=== PATIENT | male | born 1945 | race American Indian/Alaskan Native ===

== ENCOUNTER 2016-11-06 15:33 | Emergency (ER) | payer MEDICARE ==
[2016-11-06 15:34] VITALS: BMI 23.1
--- NOTE | 2016-11-06 19:18 | C.PDOC ---
History Of Present Illness 71 y/o male presents to ED with complaints of worsening headache. Patient states x2 weeks ago he fell from treadmill and hit head but had no loc, vision change or vomiting. Patient reports he fell again from treadmill x2 days ago and now developed worsen headache and had bump to right forehead. No other complaints at this time. Time Seen by Provider: 11/06/16 17:29 Chief Complaint (Nursing): Headache History Per: Patient History/Exam Limitations: no limitations Onset/Duration Of Symptoms: Days Current Symptoms Are (Timing): Still Present Past Medical History Reviewed: Historical Data, Nursing Documentation, Vital Signs Vital Signs: Last Vital Signs Temp 97.9 F 11/06/16 17:32 Pulse 59 L 11/06/16 17:32 Resp 16 11/06/16 17:32 BP 127/89 11/06/16 17:32 Pulse Ox 100 11/06/16 19:32 - Medical History PMH: Anxiety, HTN, Pneumonia (2 yrs ago) Denies: Chronic Kidney Disease Surgical History: No Surg Hx - [facility] Procedures OTH & OPEN REPAIR DIRECT INGUINAL HERNIA W GRAFT OR PROSTH (03/08/14) Family History: States: No Known Family Hx - Social History Hx Alcohol Use: No Hx Substance Use: No - Immunization History Hx Tetanus Toxoid Vaccination: No Hx Influenza Vaccination: No Hx Pneumococcal Vaccination: No Review Of Systems Except As Marked, All Systems Reviewed And Found Negative. Constitutional: Negative for: Fever, Chills Eyes: Negative for: Vision Change Cardiovascular: Negative for: Chest Pain Respiratory: Negative for: Shortness of Breath Gastrointestinal: Negative for: Nausea, Vomiting Skin: Negative for: Rash Neurological: Positive for: Headache. Negative for: Weakness, Numbness Physical Exam - Physical Exam Appears: Non-toxic, No Acute Distress Skin: Normal Color, Warm, Dry, No Rash Head: Atraumatic, Normacephalic, Swelling (bump to right forehead) Eye(s): bilateral: Normal Inspection, PERRL, EOMI Oral Mucosa: Moist Neck: Normal ROM, No Midline Cervical Tenderness, No Paracervical Tenderness Chest: Symmetrical Extremity: Normal ROM, No Tenderness, No Pedal Edema, Swelling Neurological/Psych: Oriented x3, Normal Speech, Normal Cognition, Normal Cranial Nerves, Normal Motor, Normal Sensation ED Course And Treatment - Laboratory Results Lab Interpretation: No Changes Compared To Prior Results O2 Sat by Pulse Oximetry: 100 (RA) Pulse Ox Interpretation: Normal Progress Note: CT scan head Disposition - Disposition Disposition Time: 19:32 Condition: STABLE Forms: [facility] (Urdu) - Clinical Impression Clinical Impression: Head injury - PA / FEED WEIGHER / Resident Statement MD/DO has reviewed & agrees with the documentation as recorded. - Scribe Statement The provider has reviewed the documentation as recorded by the Scribe Tika Escobar All medical record entries made by the Mingoibe were at my direction and personally dictated by me. I have reviewed the chart and agree that the record accurately reflects my personal performance of the history, physical exam, medical decision making, and the department course for this patient. I have also personally directed, reviewed, and agree with the discharge instructions and disposition. Physician Patient Turnover Patient Signed Over To: Jv Harris Handoff Comments: CT head is pending
--- NOTE | 2016-11-06 19:52 | CT ---
EXAM: CT Head Without Intravenous Contrast EXAM DATE/TIME: 11/06/2016 6:09 PM CLINICAL HISTORY: 71 years old, male; Injury or trauma; Fall; Initial encounter; Abrasion; Forehead; Additional info: Fall, head injury TECHNIQUE: Axial computed tomography images of the head/brain without intravenous contrast. All CT scans at this facility use one or more dose reduction techniques, viz.: automated exposure control; ma/kV adjustment per patient size (including targeted exams where dose is matched to indication; i.e. head); or iterative reconstruction technique. Coronal and sagittal reformatted images were created and reviewed. COMPARISON: No relevant prior studies available. FINDINGS: BRAIN: Focal areas of low density in the basal ganglia bilaterally, image 21 of series 4, most compatible with bilateral old/chronic lacunar infarcts. No significant acute abnormality identified. Diffuse, mild, age-related cortical atrophy and ventriculomegaly. No acute hemorrhage seen within the brain. No acute extra-axial fluid collections visualized. No evidence of significant mass effect within the brain. 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 No evidence of significant hydrocephalus. BONES/JOINTS: No acute fractures or other acute bony abnormality noted. SOFT TISSUES: No acute abnormality of the visualized soft tissues is seen. SINUSES: Visualized paranasal sinuses appear clear. MASTOID AIR CELLS: Mastoid air cells appear clear. IMPRESSION: - No evidence of acute intracranial injury or fractures. - See above for remaining findings.
[2016-11-06 20:23] VITALS: BP 133/85; PULSE 61; RESP 18; TEMP 98.1; O2SAT 98
== END 2016-11-06 20:25 | disposition home or self-care (01) ==
LOC: C.ER 15:33
DX: S09.90XA Unspecified injury of head, initial encounter (principal); W18.39XA Other fall on same level, initial encounter; Y93.A1 Activity, exercise machines primarily for cardiorespiratory conditioning; Y92.89 Other specified places as the place of occurrence of the external cause